=== PATIENT | female | born 1985 | race Caucasian/White ===

== ENCOUNTER 2023-04-20 10:02 | Inpatient (IN) ==
[2023-04-20] MEDS ORDERED: Lidocaine 1% VIAL 10 MG/ML 30 ML VIAL INJ PRN (11:22)
[2023-04-20] MEDS ORDERED: Lactated Ringers 1000 ml BAG 1,000 ML IV ONE (11:22)
[2023-04-20] MEDS ORDERED: Buffered Lidocaine 1% SYRIN 1 ml INTRADERM ONE (11:22)
[2023-04-20 12:29] LABS: Urine Benzodiazepine Screen None Detected (None Detect); Urine Opiates Screen None Detected (None Detect)
[2023-04-20] MEDS ORDERED: miSOPROStol 100 mcg TAB PO ONE (15:53)
[2023-04-20] MEDS ORDERED: miSOPROStol 100 mcg TAB PO SCH (22:00)
[2023-04-20 23:37] LABS: ABS Eosinophils 0.1 10^3/uL (0.0-0.5); ABS Lymphocytes 2.2 10^3/uL (1.0-4.8); ABS Monocytes 0.8 10^3/uL (0.0-0.9); ABS Neutrophils 8.4 10^3/uL (1.5-7.6); ABS Nucleated RBC 0.01 10^3/ul; Eosinophil % 0.6 %; Hematocrit 34.8 % (35-45); Hemoglobin 11.9 g/dL (11.5-14.3); Lymphocyte % 18.8 %; Mean Corpuscular Hemoglobin 31.9 pg (27-33); Mean Corpuscular Hgb Conc 34.2 g/dL (31-36); Mean Corpuscular Volume 93.3 fL (80-97); Nucleated Red Blood Cells % 0.1 %/100WBC (0.0-0.8); Platelet Count 194 10^3/uL (150-450); Red Blood Count 3.73 10^6/uL (3.63-4.92); Red Cell Distribution Width 15.5 % (12-17); White Blood Count 11.4 10^3/uL (3.8-11.8)
[2023-04-20] MEDS: Lactated Ringers 1000 ml BAG 1,000 ML IV SCH (23:55)
[2023-04-21] MEDS ORDERED: Oxytocin in LR 20,000 MILLI.UNIT/1,000 ML BAG IV SCH ×2 (00:15→16:35)
[2023-04-21] MEDS ORDERED: Lidocaine 1.5% EPI 1:200,000 30 ML SDV ONE (01:39)
[2023-04-21] MEDS ORDERED: OBEPIDURAL (200 ML) 200 ML EPIDURAL ONE (01:39)
[2023-04-21] MEDS ORDERED: Lactated Ringers 1000 ml BAG 1,000 ML IV ONE (02:24)
[2023-04-21] MEDS ORDERED: Sodium Citrate/Citric Acid LIQ 15 ML UDC PO PRN (02:24)
[2023-04-21] MEDS ORDERED: Phenylephrine 40 mcg/mL 10mL (400mcg) SYRINGE IV PUSH PRN ×2 (02:24)
[2023-04-21] MEDS ORDERED: OBEPIDURAL (200 ML) 200 ML EPIDURAL SCH (03:00)
[2023-04-21] MEDS ORDERED: Lactated Ringers 1000 ml BAG 1,000 ML IV SCH ×2 (03:00→17:00)
[2023-04-21 03:58] LABS: Urine Appearance Clear; Urine Bilirubin Negative (Negative); Urine Blood 1+ (Negative); Urine Color Yellow; Urine Glucose Negative (Negative); Urine Ketones Negative (Negative); Urine Nitrite Negative (Negative); Urine Protein 1+(30 mg/dL) (Negative); Urine Specific Gravity 1.023 (1.002-1.030); Urine Urobilinogen Negative (Negative)
[2023-04-21 04:07] LABS: Urine Bacteria Absent (Absent); Urine Red Blood Cell Trace(0-2/hpf) (Absent); Urine Squamous Epithelial Cell Present (Absent); Urine White Blood Cell Absent (Absent)
[2023-04-21] MEDS: Lactated Ringers 1000 ml BAG 1,000 ML IV SCH (13:53)
[2023-04-21] MEDS ORDERED: Glycerin ADULT 2.4 gm SUPP PR PRN (16:31)
[2023-04-21] MEDS: Witch Hazel PAD JAR TOPICAL PRN (17:59)
[2023-04-21] MEDS: Dibucaine 1% OINT 28.35 GM TUBE PR PRN (17:59)
[2023-04-21 23:00] LABS: Hemoglobin 8.5 g/dL (11.5-14.3); Mean Corpuscular Hemoglobin 32.2 pg (27-33); Mean Corpuscular Hgb Conc 34.2 g/dL (31-36); Mean Corpuscular Volume 94.1 fL (80-97); Mean Platelet Volume 9.9 fL (7.5-11.2); Platelet Count 152 10^3/uL (150-450); Red Blood Count 2.66 10^6/uL (3.63-4.92); Red Cell Distribution Width 15.4 % (12-17); White Blood Count 23.7 10^3/uL (3.8-11.8)
[2023-04-21 23:22] LABS: ABS Lymphocytes 1.8 10^3/uL (1.0-4.8); ABS Monocytes 1.1 10^3/uL (0.0-0.9); ABS Neutrophils 20.8 10^3/uL (1.5-7.6); ABS Nucleated RBC 0.01 10^3/ul; Lymphocyte % 7.5 %
[2023-04-22 08:00] LABS: ABS Eosinophils 0.1 10^3/uL (0.0-0.5); ABS Lymphocytes 2.9 10^3/uL (1.0-4.8); ABS Monocytes 1.1 10^3/uL (0.0-0.9); ABS Nucleated RBC 0.01 10^3/ul; Eosinophil % 0.3 %; Hematocrit 26.8 % (35-45); Lymphocyte % 12.5 %; Mean Corpuscular Hemoglobin 31.7 pg (27-33); Mean Corpuscular Hgb Conc 33.6 g/dL (31-36); Mean Corpuscular Volume 94.5 fL (80-97); Mean Platelet Volume 9.9 fL (7.5-11.2); Platelet Count 176 10^3/uL (150-450); Red Blood Count 2.83 10^6/uL (3.63-4.92); Red Cell Distribution Width 15.8 % (12-17)
[2023-04-22] MEDS: Dibucaine 1% OINT 28.35 GM TUBE PR PRN (12:55)
[2023-04-23] MEDS: Witch Hazel PAD JAR TOPICAL PRN (17:20)
[2023-04-23] MEDS: Dibucaine 1% OINT 28.35 GM TUBE PR PRN (17:20)
[2023-04-24 07:46] VITALS: BP 123/74
== END 2023-04-24 16:00 | disposition home or self-care (01) | DRG 806 ==
LOC: MCHOBOUT 10:02 → MCHOB 11:03
PROVIDERS: ADMIT Registered Nurse; ATTEND Midwife